=== PATIENT | male | born 1965 | race Caucasian/White ===

== ENCOUNTER 2018-02-02 20:55 | Emergency (ER) | payer BC, SELFPAY ==
--- NOTE | 2018-02-02 21:01 | ED_ITS ---
HPI - Arrhythmia/Palpitations General Chief Complaint: Arrhythmia/Palpitations Stated Complaint: LIGHT HEADED, FAST HEART RATE Time Seen by Provider: 02/02/18 20:58 Source: patient Mode of arrival: ambulatory Limitations: no limitations History of Present Illness HPI narrative: 52-year-old male here for evaluation of palpitations and lightheadedness and chest pressure and tingling in his left arm. Patient states that he has been having palpitations off and on for the past week or so. He states that these have not been associated with any other symptoms. He states that this evening at approximately 2030 hr he was sitting on the couch and had a sudden onset of palpitations. He did state that he became lightheaded with these palpitations. He states it was a sudden onset had a sudden resolution. Lasting approximately 5 min. Was associated with some chest pressure and tingling in his left arm after the palpitations resolved. By the time he arrived here in the emergency department the chest pressure has resolved. Has no prior cardiac history. He is otherwise healthy. Related Data Allergies Allergy/AdvReac Type Severity Reaction Status Date / Time No Known Drug Allergies Allergy Verified 02/02/18 21:43 Review of Systems Constitutional Denies chills, Denies fatigue, Denies fever(s) and Denies headache(s) ENT Ears, Nose, Mouth, and Throat: Denies vertigo, Reports dizziness and Denies headache(s) Cardiovascular Reports chest pain, Reports chest pain at rest, Denies syncope, Reports rapid heart rate, Denies pedal edema, Denies edema, Reports irregular heart rhythm, Denies leg edema, Reports lightheadedness, Reports palpitations, Denies dyspnea and Denies dyspnea on exertion Respiratory Denies chest congestion, Denies dyspnea and Denies dyspnea on exertion Gastrointestinal Gastrointestinal: Denies abdominal pain, Denies nausea and Denies vomiting Genitourinary Denies dysuria Musculoskeletal Denies abnormal gait, Denies myalgias and Denies arthralgias Integumentary/Breasts Denies lesions and Denies rash Neurologic Denies abnormal gait, Denies behavioral changes, Denies vertigo, Reports dizziness, Denies syncope and Denies headache(s) Psychiatric Denies behavioral changes Endocrine Denies fatigue and Reports palpitations Hematologic/Lymphatic Denies easy bleeding and Denies easy bruising PFSH Medical History Healthy adult (Acute) Surgical History No pertinent past surgical history (Acute) Comment: Patient is a nonsmoker Exam Initial Vital Signs Initial Vital Signs: Vital Signs Pulse Rate 66 02/02/18 21:02 Respiratory Rate 18 02/02/18 21:02 Blood Pressure 129/84 H 02/02/18 21:02 Pulse Oximetry 97 02/02/18 21:02 Const General: cooperative, healthy appearing, comfortable, well developed, well groomed and No acute distress Orientation: alert, awake and oriented x3 HENMT Head: normal to inspection and normocephalic Resp Effort & Inspection: normal respiratory effort Auscultation: clear to auscultation bilaterally Cardio Rate: regular rate Rhythm: regular rhythm Heart Sounds: no murmurs Pulses: radial pulses present GI Inspection: non-distended Palpation: soft, No firm and No guarding Back/Spine/Pelvis Back: No CVA tenderness Skin Lesions: no lesions Rashes: no rashes Neuro General: alert, awake and oriented x3 Cognition: normal cognition Speech: speech normal Psych Appearance: grossly normal and well kempt Course Orders Ordered: ED Orders 02/02/18 20:59 EKG-12 Lead Stat 02/02/18 21:15 XR chest 1V Stat 02/02/18 21:24 EKG-12 Lead Stat 02/02/18 21:31 Basic Metabolic Panel Stat Complete Blood Count AUTO DIFF Stat Magnesium Stat Phosphorous Stat Thyroid Stimulating Hormone Stat Troponin I Stat Esmolol HCl (Brevibloc) 2.5 gm in 250 mls @ 0 mls/hr IV TITRATE JACQUE; Protocol Last Titration: 02/02/18 22:09 Dose: 27 mls/hr Admin: 02/02/18 22:08 Dose: 270 mls/hr Discontinued Medications Aspirin (Aspirin Chew) 324 mg PO NOW ONE Stop: 02/02/18 21:25 Last Admin: 02/02/18 21:45 Dose: 324 mg Metoprolol Tartrate (Lopressor) 25 mg PO NOW ONE Stop: 02/02/18 23:07 Last Admin: 02/02/18 23:12 Dose: 25 mg Vital Signs - 8 hr 02/02/18 21:02 02/02/18 21:05 02/02/18 21:59 Temperature 98.2 F Pulse Rate 66 69 Respiratory Rate 18 16 Blood Pressure 129/84 H Blood Pressure [Right Arm] 123/80 H Pulse Oximetry 97 95 02/02/18 22:31 02/02/18 22:51 Temperature Pulse Rate 78 70 Respiratory Rate 15 12 Blood Pressure Blood Pressure [Right Arm] 110/74 101/71 Pulse Oximetry 94 94 MDM - Arrhythmia/Palpitations Lab Data Attestation: I reviewed the patient's lab results. Result diagrams: 02/02/18 21:31 02/02/18 21:31 Lab Results 02/02/18 02/02/18 02/02/18 Range/Units 21:31 21:31 21:31 WBC 7.0 (4.5-11.0) X10^3/uL RBC 5.19 (4.5-5.9) X10^6/uL Hgb 16.1 (13.5-17.5) g/dL Hct 47.6 (41-53) % MCV 91.6 (80-100) fL MCH 31.1 (26-34) PG MCHC 33.9 (30-36) % RDW 13.8 (11.6-14.8) % Plt Count 186 (150-400) X10^3/uL Neut % (Auto) 56.8 (50-75) % Lymph % (Auto) 31.2 (25-40) % [place] % (Auto) 8.9 (3-14) % Eos % (Auto) 2.3 (2-4) % Baso % (Auto) 0.8 (0-2) % Neut # (Auto) 4000 (6710-0644) /uL Sodium 145 (137-145) mmol/L Potassium 4.5 (3.4-5.1) mmol/L Chloride 105 (98-107) mmol/L Carbon Dioxide 29 (22-32) mmol/L BUN 25 H (9-20) mg/dL Creatinine 1.00 (0.66-1.25) mg/dL Estimated GFR > 60.0 (>60) mL/min BUN/Creatinine Ratio 25.0 H (6-22) Glucose 79 (70-100) mg/dL Calcium 10.5 H (8.4-10.2) mg/dL Phosphorus 4.1 (2.5-4.5) mg/dL Magnesium 2.2 (1.6-2.3) mg/dL Troponin I 0.039 H (0.01-0.034) ng/mL TSH (0.47-4.68) uIU/mL 02/02/18 Range/Units 21:31 WBC (4.5-11.0) X10^3/uL RBC (4.5-5.9) X10^6/uL Hgb (13.5-17.5) g/dL Hct (41-53) % MCV (80-100) fL MCH (26-34) PG MCHC (30-36) % RDW (11.6-14.8) % Plt Count (150-400) X10^3/uL Neut % (Auto) (50-75) % Lymph % (Auto) (25-40) % [place] % (Auto) (3-14) % Eos % (Auto) (2-4) % Baso % (Auto) (0-2) % Neut # (Auto) (4365-1667) /uL Sodium (137-145) mmol/L Potassium (3.4-5.1) mmol/L Chloride (98-107) mmol/L Carbon Dioxide (22-32) mmol/L BUN (9-20) mg/dL Creatinine (0.66-1.25) mg/dL Estimated GFR (>60) mL/min BUN/Creatinine Ratio (6-22) Glucose (70-100) mg/dL Calcium (8.4-10.2) mg/dL Phosphorus (2.5-4.5) mg/dL Magnesium (1.6-2.3) mg/dL Troponin I (0.01-0.034) ng/mL TSH 2.25 (0.47-4.68) uIU/mL Imaging Data Chest x-ray: Radiologist's impression: PROCEDURE: XR CHEST 1V INDICATIONS: palpitations TECHNIQUE: One view of the chest was acquired. COMPARISON: None. FINDINGS: Surgical changes and devices: None. Lungs and pleura: No pleural effusions or pneumothorax. Lungs are clear. Mediastinum: Mediastinal contours appear normal. Heart size is normal. Bones and chest wall: No suspicious bony lesions. Overlying soft tissues appear unremarkable. IMPRESSION: No acute cardiopulmonary pathology. Dictated by: Clark Peterson M.D. on 02/02/2018 at 21:40 Approved by: Clark Peterson M.D. on 02/02/2018 at 21:40 ECG Data Attestation: I personally reviewed and interpreted this ECG as follows: Prior ECG tracings: not available for review Interpretation: EKG timed 2057 hr Sinus rhythm First degree AV block Ventricular rate is 72 As needed oval 282 milliseconds Normal QTC Nonspecific ST T wave changes EKG dated 03/17 1300 hr White complex tachycardia Ventricular rate of 103 Left axis deviation Right bundle branch block QRS 157 milliseconds QTC 440 milliseconds EKG dated 03/17 1600 hr Wide complex tachycardia Ventricular rate of 207 QRS duration 197 milliseconds QTC 371 milliseconds MDM Narrative Medical decision making narrative: Patient was given an aspirin here in the emergency department. Initially patient had infrequent PVCs which were asymptomatic on the monitor. He did have a 1st degree AV block on his initial EKG. He then started having runs of a wide complex tachycardia. Patient was initially asymptomatic from this but then had episodes of a sustained wide complex tachycardia with heart rates in the 200s. Patient did become lightheaded during these episodes. They all self resolved. Lasting less than 15 sec each. Patient without respiratory distress. I discussed the case with Dr. Olguin with cardiology at [facility]. Copies of these EKGs were sent him and he evaluated them. He stated that ventricular tachycardia was a concern however there were other signs of the EKG that pointed against this diagnosis. This could also be atrial fibrillation with aberrancy. He recommended starting Esmolol drip to make sure the patient's potassium and magnesium were appropriate. [facility] was full. Discussed the case with Dr. Sevilla at [facility] who accepts the patient in transfer. I discussed this with the patient. Discussed transport the patient. He expressed understanding and agreement. After starting the esmolol drip patient had no further episodes of the tachycardia. Dr Turner call back and stated that since the patient was on an esmolol drip that he probably needed to go to the ICU. The ICU at [facility] was full. We contacted [facility] in [place]. I discussed the case with Dr. Weiss the skein straightener at [place] to recommended that we give him an oral metoprolol and stop the esmolol drip. Patient was given 25 mg of metoprolol and the esmolol drip was weaned off. Discussed the case with Dr. Paige hospitalist at [facility] accepts the patient in transfer. Patient is stable for transfer. Informed him of the transfer to [place]. He expressed understanding Discharge Plan Departure Patient Disposition: [facility] Clinical Impression: Arrhythmia
[2018-02-02 21:02] VITALS: BP 129/84; PULSE 66; RESP 18; O2SAT 97; BMI 27.1
[2018-02-02 21:05] VITALS: TEMP 36.8
--- NOTE | 2018-02-02 21:15 | DI.RAD.S_ITS ---
PROCEDURE: XR CHEST 1V INDICATIONS: palpitations TECHNIQUE: One view of the chest was acquired. COMPARISON: None. FINDINGS: Surgical changes and devices: None. Lungs and pleura: No pleural effusions or pneumothorax. Lungs are clear. Mediastinum: Mediastinal contours appear normal. Heart size is normal. Bones and chest wall: No suspicious bony lesions. Overlying soft tissues appear unremarkable. IMPRESSION: No acute cardiopulmonary pathology. Dictated by: Clark Peterson M.D. on 02/02/2018 at 21:40 Approved by: Clark Peterson M.D. on 02/02/2018 at 21:40
[2018-02-02 21:38] LABS: Add Manual Diff / Slide Review NO; Basophils Percent Auto 0.8 % (0-2); Eosinophils Percent Auto 2.3 % (2-4); Hematocrit 47.6 % (41-53); Hemoglobin 16.1 g/dL (13.5-17.5); Lymphocytes Percent Auto 31.2 % (25-40); Mean Corpuscular HGB Conc 33.9 % (30-36); Mean Corpuscular Hemoglobin 31.1 PG (26-34); Mean Corpuscular Volume 91.6 fL (80-100); Monocytes Percent Auto 8.9 % (3-14); Neutrophils Absolute Auto 4000 /uL (3000-5900); Neutrophils Percent Auto 56.8 % (50-75); Platelet Count 186 X10^3/uL (150-400); Red Blood Cell Count 5.19 X10^6/uL (4.5-5.9); Red Cell Distribution Width 13.8 % (11.6-14.8)
[2018-02-02] MEDS: ASPIRIN 81 MG TAB 324 MG PO (21:45)
[2018-02-02 21:47] LABS: Blood Urea Nitrogen 25 mg/dL (9-20); Calcium 10.5 mg/dL (8.4-10.2); Carbon Dioxide 29 mmol/L (22-32); Chloride 105 mmol/L (98-107); Estimated Glomerular Filt Rate > 60.0 mL/min (>60); Glucose 79 mg/dL (70-100); HEMOLYSIS 21 (0-50); Potassium 4.5 mmol/L (3.4-5.1); Sodium 145 mmol/L (137-145)
[2018-02-02 21:59] VITALS: BP 123/80; PULSE 69; RESP 16; O2SAT 95
[2018-02-02 21:59] LABS: Magnesium 2.2 mg/dL (1.6-2.3); Phosphorous 4.1 mg/dL (2.5-4.5); Troponin I 0.039 ng/mL (0.01-0.034)
[2018-02-02] MEDS: ESMOLOL 2.5 GM/250 ML IV.SOLN IV (22:08)
--- NOTE | 2018-02-02 22:20 | PC.NURSE ---
Pt original hr at 71 upon arrival. HR than proceeded to increase to the 110s in a different rhythm. Pt denied any symptoms at this time. Received repeat ekg of second rhythm. Pt's hr going intermittent between the two rhythms. Pt's then went into a 3rd rhythm of a wide complex tachycardia with a rate as his 223 unsustain for about 10 seconds. Pt reports feeling dizzy during this episode, then hr would decrease to 48 before coming backup to the 70s. Continued rotating through these heart rhythms until esmolol was started. Current rate at 50mcg/kg/min. Continues to report intermittent pressure on center chest.
[2018-02-02 22:31] VITALS: BP 110/74; PULSE 78; RESP 15; O2SAT 94
[2018-02-02 22:38] LABS: Thyroid Stimulating Hormone 2.25 uIU/mL (0.47-4.68)
[2018-02-02 22:51] VITALS: BP 101/71; PULSE 70; RESP 12; O2SAT 94
[2018-02-02] MEDS: METOPROLOL 25 MG TABLET PO (23:12)
--- NOTE | 2018-02-02 23:23 | PC.NURSE ---
Since patient was started on esmolol, Hr has stayed in a NSR with 1st degree block. Has had occasion pvc's anc continues with minor chest pressure. esmolol stopped at this time.
[2018-02-03 00:53] VITALS: BP 103/70; PULSE 62; RESP 14; O2SAT 95
== END 2018-02-03 00:56 | disposition short-term general hospital (02) ==
PROVIDERS: Emergency Provider Emergency Medicine; Family Provider Family Medicine; PCP Family Medicine
DX: I49.9 Cardiac arrhythmia, unspecified (principal)
CPT/HCPCS: 36415; 71045; 80048; 83735; 84100; 84443; 84484; 85025; 93005; 93010; 96365; 96366; 99283; 99285; 99291; 99292

== ENCOUNTER → 2021-10-10 14:50 | Outpatient (CLI) | payer OTHER, SELFPAY ==
[2021-10-10 15:24] LABS: Add Manual Diff / Slide Review NO; Basophils Absolute Auto 0 /uL (0-100); Basophils Percent Auto 0.5 % (0-2); Eosinophils Absolute Auto 100 /uL (0-450); Eosinophils Percent Auto 1.7 % (2-4); Hematocrit 48.3 % (41-53); Hemoglobin 15.9 g/dL (13.5-17.5); Lymphocytes Absolute Auto 1400 /uL (1100-4500); Mean Corpuscular HGB Conc 32.9 % (30-36); Mean Corpuscular Hemoglobin 30.5 PG (26-34); Mean Corpuscular Volume 92.6 fL (80-100); Monocytes Absolute Auto 600 /uL (0-900); Neutrophils Absolute Auto 3900 /uL (1500-7000); Neutrophils Percent Auto 64.8 % (50-75); Platelet Count 187 X10^3/uL (150-400); Red Blood Cell Count 5.22 X10^6/uL (4.5-5.9); Red Cell Distribution Width 14.2 % (11.6-14.8)
[2021-10-10 15:43] LABS: Alanine Aminotransferase 55 IU/L (<50); Albumin 4.6 g/dL (3.5-5.0); Albumin Globulin Ratio 1.6 (1.0-2.8); Alkaline Phosphatase 58 U/L (38-126); Aspartate Aminotransferase 42 IU/L (17-59); BUN Creatinine Ratio 19.2 (6-22); Bilirubin Total 0.9 mg/dL (0.2-1.3); Blood Urea Nitrogen 19 mg/dL (9-20); C-Reactive Protein Quant < 0.5 mg/dL (<1.0); Calcium 9.3 mg/dL (8.4-10.2); Carbon Dioxide 30 mmol/L (22-32); Chloride 108 mmol/L (98-107); Estimated Glomerular Filt Rate > 60 mL/min (>60); Globulin 2.9 g/dL (1.7-4.1); Glucose 100 mg/dL (70-100); HEMOLYSIS < 15 (0-50); Sodium 144 mmol/L (137-145); Total Protein 7.5 g/dL (6.3-8.2)
[2021-10-10 15:47] LABS: Erythrocyte Sedimentation Rate 3 MM/HR (0-15)
== END ==
PROVIDERS: Family Provider Family Medicine; PCP Internal Medicine; Referring Provider Internal Medicine; Visit Provider Internal Medicine
DX: M31.6 Other giant cell arteritis (principal)
CPT/HCPCS: 36415; 80053; 85025; 85651; 86140

== ENCOUNTER 2022-01-07 18:07 | Emergency (ER) | payer OTHER, SELFPAY ==
[2022-01-07 18:13] VITALS: BP 121/91; PULSE 81; RESP 18; TEMP 37; O2SAT 95; BMI 28.6
--- NOTE | 2022-01-07 18:23 | DI.CT.S_ITS ---
PROCEDURE: CT HEAD/BRAIN WO CON INDICATIONS: fall, on Eliquis TECHNIQUE: Noncontrast 5 mm thick angled axial sections acquired from the foramen magnum to the vertex, with coronal and sagittal reformats. For radiation dose reduction, the following was used: automated exposure control, adjustment of mA and/or kV according to patient size. COMPARISON: None. FINDINGS: Image quality: Excellent. CSF spaces: Basal cisterns are patent. No extra-axial fluid collections. Ventricles are normal in size and shape. Brain: No midline shift. No intracranial masses or hemorrhage. Dunne-white matter interface is normal. Moderate cerebral and cerebellar volume loss with multifocal white matter chronic ischemic change noted. Skull and face: Calvarium and visualized facial bones are intact, without suspicious lesions. Sinuses: Visualized sinuses and mastoids are clear. IMPRESSION: Atrophy and chronic ischemic change without acute hemorrhage or mass effect. Approved by: Elliott Hankins M.D. on 01/07/2022 at 17:44
--- NOTE | 2022-01-07 18:45 | ED.HEATRA ---
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 Patient states he was getting up from the table prior to arrival use having difficulty pushing back his leg caught and he fell striking the left side of his head. Has a small abrasion, he states he has abrasion on his lip, he has some pain in his neck and headache. Patient denies any loss of consciousness. He denies any midline neck pain. He denies any new chest pain or shortness of breath. He is had some nausea but no vomiting he states his vision slightly blurred which is new. He denies any loss of bowel or bladder control. No new numbness, tingling or weakness. He does normally use a brace on his left leg and walker but has not appreciate any differences in his gait. No known drug allergies. Patient denies any tobacco, alcohol or illicit. He is accompanied by his today. He defers anything for pain or nausea. Related Data Home Medications Medication Instructions Recorded Confirmed ascorbic acid (vitamin C) 500 mg 500 mg PO DAILY 04/10/21 10/09/21 capsule atorvastatin 40 mg tablet 40 mg PO DAILY 04/10/21 10/09/21 cholecalciferol (vitamin D3) 125 125 mcg PO DAILY 04/10/21 10/09/21 mcg (5,000 unit) capsule clopidogrel 75 mg tablet (Plavix) 75 mg PO DAILY 04/10/21 10/09/21 isosorbide dinitrate 30 mg tablet 15 mg PO DAILY 04/10/21 10/09/21 magnesium oxide 400 mg PO DAILY 04/10/21 10/09/21 multivitamin 1 tab PO DAILY 04/10/21 10/09/21 amiodarone 200 mg tablet 200 mg PO BID 10/09/21 10/09/21 apixaban 5 mg tablet (Eliquis) 5 mg PO BID 10/09/21 10/09/21 metoprolol succinate 25 mg 37.5 mg PO BID 10/09/21 10/09/21 tablet,extended release 24 hr Allergies Allergy/AdvReac Type Severity Reaction Status Date / Time No Known Drug Allergies Allergy Verified 01/07/22 18:18 Review of Systems Review of Systems ROS Unobtainable: All systems reviewed & are unremarkable except as noted in HPI and below Patient History Medical History Cardiomyopathy Chronic back pain Coronary artery disease Headache ICD (implantable cardioverter-defibrillator) in place Mixed hyperlipidemia Myotonic dystrophy Paroxysmal atrial fibrillation Ventricular tachycardia Surgical History Cardiac defibrillator in place History of arthroscopic knee surgery History of heart artery stent History of neck surgery Pacemaker (~2019) Social History Smoking Status: Never smoker Smoking Status: Never smoker alcohol intake frequency: a few times a month Substance Use Type: does not use Exam Narrative Exam Narrative: GEN: Patient appears in mild distress. HEAD: Patient has abrasion on left forehead, no raccoon/Watts sign. NECK: Nontender, painless range of motion, trachea midline Negative for Nexus criteria, there is no midline line tenderness, distracting injury, altered mental status, neuro deficit, recent EtOH. EYES: PERRLA, EOMI ENT: External inspection normal, trachea is midline, TM's are normal no hemotypanum, Nares are clear, no septal hematoma, no dental or oral injury, airway is normal and with normal occlusion, No bony tenderness, patient has a small area of ecchymosis and abrasion on the inner lip RESP: Chest is nontender and has symmetric movement, no ecchymosis, breath sounds are normal no crackles, wheezes or rales CVS: Heart sounds are normal, no murmur noted, No JVD. ABG/GI: Nontender, soft, normal bowel sounds, no distention, no organomegaly, pelvic rock is negative. NEURO: Oriented AOx3, neuro is grossly intact, sensation and motor is normal all 4 extremities moving, cranial nerves II through XII are intact, GCS is 15 PSYCH: Normal mood and affect SKIN: Intact, warm and dry, no crepitus and without decubitus BACK: No CVA tenderness, no vertebral tenderness, no step-off's, no crepitus EXT: Atraumatic, hips are nontender, no pedal edema, normal color and temperature, normal range of motion of extremities with normal tendon exam, 2+ pulses in all four extremities Initial Vital Signs Initial Vital Signs: Vital Signs Temperature 98.6 F 01/07/22 18:13 Pulse Rate 81 01/07/22 18:13 Respiratory Rate 18 01/07/22 18:13 Blood Pressure 121/91 H 01/07/22 18:13 Pulse Oximetry 95 01/07/22 18:13 Oxygen Delivery Method 01/07/22 18:13 Scores GCS Fern coma scale eye opening: Spontaneous [place] coma scale verbal response: Orientated [place] coma scale motor response: Obey commands Fern coma scale total score: 15 Nexus Score for C-Spine Focal Neurologic deficit present: No Midline spinal tenderness present: No Altered level of conciousness present: No Intoxication present: No Distracting Injury Present: No Nexus Criteria for C-spine: 0 Course Orders Ordered: ED Orders 01/07/22 18:23 CT head/brain wo con Stat Vital Signs Vital signs: Vital Signs - 8 hr 01/07/22 18:13 Temperature 98.6 F Pulse Rate 81 Respiratory Rate 18 Blood Pressure 121/91 H Pulse Oximetry 95 Oxygen Delivery Method Room Air MDM - Head Injury Imaging Data CT scan - head: Radiologist's Impression: [place] [address] CT Scan Report Signed Patient: Arslan Gtz MR#: [id number] : 1965 Acct:[id number] Age/Sex: 56 / M Date of Service: 01/07/22 Loc: ED Accession Number: [id number] ?? Procedure: CT head/brain wo con Ordering Provider: Andreea Sheth D.O. PROCEDURE:? CT HEAD/BRAIN WO CON ? INDICATIONS:? fall, on Eliquis ? TECHNIQUE:? Noncontrast 5 mm thick angled axial sections acquired from the foramen magnum to the vertex, with coronal and sagittal reformats.? For radiation dose reduction, the following was used:? automated exposure control, adjustment of mA and/or kV according to patient size.? ? COMPARISON:? None. ? FINDINGS:? Image quality:? Excellent.? ? CSF spaces:? Basal cisterns are patent.? No extra-axial fluid collections.? Ventricles are normal in size and shape.? ? Brain:? No midline shift.? No intracranial masses or hemorrhage.? Dunne-white matter interface is normal.? Moderate cerebral and cerebellar volume loss with multifocal white matter chronic ischemic change noted. ? Skull and face:? Calvarium and visualized facial bones are intact, without suspicious lesions.? ? Sinuses:? Visualized sinuses and mastoids are clear.? ? IMPRESSION:? ? Atrophy and chronic ischemic change without acute hemorrhage or mass effect. ? ? ? Approved by: Elliott Hankins M.D. on 01/07/2022 at 17:44? [facility] Narrative Medical decision making narrative: This is a 56-year-old male with a mechanical ground level fall with abrasion to the forehead, headache, some nausea and blurred vision. Patient is on Eliquis daily for ventricular dysrhythmias and has an AICD. Patient's head CT is negative. Suspect concussion. Patient can continue home medications Discharge Plan Departure Patient Disposition: Home Clinical Impression: Concussion Instructions: Concussion Activity Restrictions/Additional Instructions: Follow-up with your physician if you are having continuing symptoms. You may continue home medications as prescribed. You can take Tylenol up to a 1000 mg every 6 hours as needed for headache. Please return for rapidly worsening headaches, persistent vomiting, new weakness, numbness or loss of sensation, or other new or concerning symptoms. Prescriptions: No Action atorvastatin 40 mg tablet 40 mg PO DAILY clopidogrel [Plavix] 75 mg tablet 75 mg PO DAILY isosorbide dinitrate 30 mg tablet 15 mg PO DAILY Rx Instructions: allow nitrate-free interval of 12-14 hrs per 24-hr period magnesium oxide 400 mg magnesium capsule 400 mg PO DAILY multivitamin Tablet 1 tab PO DAILY cholecalciferol (vitamin D3) 125 mcg (5,000 unit) capsule 125 mcg PO DAILY ascorbic acid (vitamin C) 500 mg capsule 500 mg PO DAILY amiodarone 200 mg tablet 200 mg PO BID metoprolol succinate 25 mg tablet extended release 24 hr 37.5 mg PO BID Eliquis 5 mg tablet 5 mg PO BID Referrals: Min Del Real MD [Primary Care Provider] - Visit Report Forms: Patient Portal/API
== END 2022-01-07 19:11 | disposition home or self-care (01) ==
PROVIDERS: Emergency Provider Emergency Medicine; Family Provider Family Medicine; PCP Internal Medicine
DX: S06.0X0A Concussion without loss of consciousness, initial encounter (principal); W19.XXXA Unspecified fall, initial encounter; Z79.01 Long term (current) use of anticoagulants
CPT/HCPCS: 70450; 99281; 99283